=== PATIENT | female | born 1985 | race Caucasian/White ===

== ENCOUNTER → 2016-06-26 | Outpatient (CLI) | payer MEDICARE, OTHER ==
--- NOTE | 2016-06-26 08:39 | US ---
EXAMINATION TYPE: US venous doppler duplex LE LT DATE OF EXAM: 06/26/2016 7:26 AM COMPARISON: Left leg venous ultrasound April 08, 2012. CLINICAL HISTORY: Z86.718 Hx of DVT, M79.662 Left lower leg pain. SIDE PERFORMED: Left TECHNIQUE: The lower extremity deep venous system is examined utilizing real time linear array sonog cristhian with graded compression, doppler sonography and color-flow sonography. VESSELS IMAGED: External Iliac Vein (EIV) Common Femoral Vein Deep Femoral Vein Greater Saphenous Vein * Femoral Vein Popliteal Vein Small Saphenous Vein * Proximal Calf Veins-limited visualization, due to depth (* superficial vessels) Left Leg: There appears to be some chronic changes at the level of EIV, flow here, as vein not compl etely compressible, no new thrombus, flow throughout entire leg. Imaging of the distal left external iliac vein is improved from 2013 but still has persistent incompl ete compressibility but visualized color flow. Remainder left lower extremity is unremarkable. IMPRESSION: Some residual chronic thrombus distal left external iliac vein improved from prior, no ne w or acute DVT in the left lower extremity is present.
== END | disposition home or self-care (01) ==
LOC: LABWHC1 07:00
PROVIDERS: ATTEND Family Medicine
DX: I82.522 Chronic embolism and thrombosis of left iliac vein (principal)

== ENCOUNTER → 2017-03-15 | Outpatient (CLI) | payer MEDICARE, OTHER ==
--- NOTE | 2017-03-15 13:36 | US ---
EXAMINATION TYPE: US venous doppler duplex LE LT DATE OF EXAM: 03/15/2017 1:21 PM COMPARISON: US June 26, 2016 CLINICAL HISTORY: M79.605 LT LEG PAIN; Entire left leg pain. Patient stated is on daily Aspirin for D VT; on Depo Provera shot SIDE PERFORMED: Left TECHNIQUE: The lower extremity deep venous system is examined utilizing real time linear array sonog cristhian with graded compression, doppler sonography and color-flow sonography. VESSELS IMAGED: Common Femoral Vein Deep Femoral Vein Greater Saphenous Vein * Femoral Vein Popliteal Vein Small Saphenous Vein * Proximal Calf Veins (* superficial vessels) Left Leg: Increased non occluding chronic wall changes are noted in CFV; non occluding chronic wall changes still seen in one of two veins seen at left popliteal level as one of these veins compresses to wall changes. IMPRESSION: Cannot exclude acute partial occlusive deep venous thrombus on background of chronic DVT . Results communicated to ordering physician office via telephone shortly after exam was completed.
== END | disposition home or self-care (01) ==
LOC: RADUSWWP 12:10
PROVIDERS: ATTEND Family Medicine
DX: M79.605 Pain in left leg (principal)

== ENCOUNTER 2017-03-16 15:22 | Emergency (ER) | payer MEDICARE, OTHER ==
--- NOTE | 2017-03-16 16:11 | ED ---
General Adult HPI - General Chief complaint: Shortness of Breath Stated complaint: Possible blood clot Time Seen by Provider: 03/16/17 15:46 Source: patient, RN notes reviewed, old records reviewed Mode of arrival: EMS Limitations: no limitations - History of Present Illness Initial comments: Chief complaint and history of present illness; this is a 32-year-old female who was diagnosed with a probably acute on chronic DVT left leg yesterday. She was started on Xarelto. She's taken 3 pills since that time. This morning approximately 30 minutes after awakening she started having some shortness of breath. Mild chest heaviness chest pressure. The patient reports that her doctor wanted her to be admitted yesterday for evaluation and further management but she states she was not prepared to stay and she needed to go home to take care of her. - Related Data Home Medications Medication Instructions Recorded Confirmed Acyclovir [Zovirax] 400 mg PO DAILY 03/16/17 03/16/17 Chlorthalidone 25 mg PO DAILY 03/16/17 03/16/17 Ergocalciferol [Vitamin D2] 50,000 unit PO Q30D 03/16/17 03/16/17 Lisinopril [Prinivil] 10 mg PO DAILY 03/16/17 03/16/17 Rivaroxaban [Xarelto] 15 mg PO BID 03/16/17 03/16/17 Allergies Allergy/AdvReac Type Severity Reaction Status Date / Time No Known Allergies Allergy Verified 03/16/17 16:12 Review of Systems ROS Statement: Those systems with pertinent positive or pertinent negative responses have been documented in the HPI. Review of systems. Patient denies any headache or visual acuity changes. She complains of mild chest pressure mild shortness of breath that started approximately half hour after awakening this morning. Mild sweats. No radiation of discomfort. Patient denies any other symptoms. Past medical problems significant for depression and bipolar disorder and anxiety. Also asthma, chronic DVT and hypertension. Surgeries cholecystectomy. Family history cancers including breast and lung and skin. Patient denies any ALLERGIES nonsmoker nondrinker. ROS Other: All systems not noted in ROS Statement are negative. Past Medical History Past Medical History: Asthma, Deep Vein Thrombosis (DVT), Hypertension History of Any Multi-Drug Resistant Organisms: None Reported Past Surgical History: Cholecystectomy Additional Past Surgical History / Comment(s): pt states she has had more surgeries, however cannot rememeber what surgeries have been done Past Psychological History: Anxiety, Bipolar Smoking Status: Former smoker Past Alcohol Use History: None Reported Past Drug Use History: None Reported General Exam - General Exam Comments Initial Comments: General: The patient is awake and alert, here because she is complaining of feeling short of breath and mild chest pressure. Patient was diagnosis acute on chronic DVT yesterday. She's had 3 doses of Xarelto starting yesterday. Vital signs temp 98.1 pulse 95 respiratory rate 20 pulse ox 94% on room air blood pressure 127/73. Pulse ox on nasal oxygen 2 L, 98%. Eye: Pupils are equal, round and reactive to light, extra-ocular movements are intact ; there is normal conjunctiva bilaterally. No signs of icterus. Ears, nose, mouth and throat: There are moist mucous membranes and no oral lesions. Neck: The neck is supple, there is no tenderness, no anterior cervical lymphadenopathy , thyroid not enlarged, Cardiovascular: There is a regular rate and rhythm. No murmur, rub or gallop is appreciated. Respiratory: Lungs are clear to auscultation, respirations are non-labored, breath sounds are equal. No wheezes, stridor, rales, or rhonchi. Objective complaint of shortness of breath Gastrointestinal: Soft, non-distended, non-tender abdomen without masses or organomegaly noted. There is no rebound or guarding present. No CVA tenderness. Bowel sounds are unremarkable. Back: There is no tenderness to palpation in the midline. There is no obvious deformity. No rashes noted. Musculoskeletal: Normal ROM, no tenderness, There is no pedal edema. There is no calf tenderness or swelling. Sensation intact. Pulses equal bilaterally 2+. Negative Homans sign. Neurological: CN II-XII intact, There are no obvious motor or sensory deficits. Coordination appears grossly intact. Speech is normal. Skin: Skin is warm and dry and no rashes or lesions are noted. Psychiatric: History of anxiety, depression and bipolar disorder. States she does not know if she is anxious and feeling short of breath or short of breath because of the blood clot in her leg. Limitations: no limitations Course Vital Signs 03/16/17 15:28 Temperature 98.1 F Pulse Rate 95 Respiratory 20 Rate Blood Pressure 127/73 O2 Sat by Pulse 94 L Oximetry EKG Findings - EKG Comments: EKG Findings:: EKG was done and reviewed at 1547. EKG showed normal sinus rhythm with sinus arrhythmia. No acute ST elevation. Rate 88 WI interval 164 QRS 78 QT 434 QTc of 525. No old EKG to compare to. Dr. Nowak Medical Decision Making - Medical Decision Making Medical decision making; the patient's here because of shortness of breath after having a diagnosis of acute on chronic DVT. She's been on Xarelto for 3 doses since yesterday. Today's laboratory shows white count 10.9 hemoglobin 14 hematocrit 42. INR 1.2. D-dimer 0.42. Potassium 4.3, BUN 16 creatinine 0.9 and GFR greater than 60. Glucose 94. DT the chest to rule out PE was done and reviewed by radiologist his final impression is no evident pulmonary embolism. Correlate for possible pulmonary artery hypertension. As read by Dr. William Patient states she is feeling better now. We did discuss anxiety and hyperventilation. The patient be advised to call follow-up with family physician. Continue on her Xarelto. Return emergency room as needed. - Lab Data Result diagrams: 03/16/17 15:55 03/16/17 15:55 Lab Results 03/16/17 03/16/17 03/16/17 Range/Units 15:55 15:55 15:55 WBC 10.9 H (3.8-10.6) k/uL RBC 5.26 (3.80-5.40) m/uL Hgb 14.2 (11.4-16.0) gm/dL Hct 42.5 (34.0-46.0) % MCV 80.8 (80.0-100.0) fL MCH 26.9 (25.0-35.0) pg MCHC 33.3 (31.0-37.0) g/dL RDW 14.8 (11.5-15.5) % Plt Count 343 (150-450) k/uL Neutrophils % 63 % Lymphocytes % 25 % Monocytes % 5 % Eosinophils % 5 % Basophils % 1 % Neutrophils # 6.9 (1.3-7.7) k/uL Lymphocytes # 2.7 (1.0-4.8) k/uL Monocytes # 0.5 (0-1.0) k/uL Eosinophils # 0.5 (0-0.7) k/uL Basophils # 0.1 (0-0.2) k/uL PT (9.0-12.0) sec INR (<1.2) APTT (22.0-30.0) sec D-Dimer (<0.60) mg/L FEU Sodium 140 (137-145) mmol/L Potassium 3.3 L (3.5-5.1) mmol/L Chloride 102 (98-107) mmol/L Carbon Dioxide 23 (22-30) mmol/L Anion Gap 15 mmol/L BUN 16 (7-17) mg/dL Creatinine 0.90 (0.52-1.04) mg/dL Est GFR (MDRD) Af Amer >60 (>60 ml/min/1.73 sqM) Est GFR (MDRD) Non-Af >60 (>60 ml/min/1.73 sqM) Glucose 94 (74-99) mg/dL Calcium 9.3 (8.4-10.2) mg/dL Total Bilirubin 1.1 (0.2-1.3) mg/dL AST 22 (14-36) U/L ALT 39 (9-52) U/L Alkaline Phosphatase 60 (38-126) U/L Total Creatine Kinase 113 (30-135) U/L CK-MB (CK-2) 0.4 (0.0-2.4) ng/mL CK-MB (CK-2) Rel Index 0.4 Troponin I <0.012 (0.000-0.034) ng/mL Total Protein 7.1 (6.3-8.2) g/dL Albumin 4.3 (3.5-5.0) g/dL 03/16/17 Range/Units 15:55 WBC (3.8-10.6) k/uL RBC (3.80-5.40) m/uL Hgb (11.4-16.0) gm/dL Hct (34.0-46.0) % MCV (80.0-100.0) fL MCH (25.0-35.0) pg MCHC (31.0-37.0) g/dL RDW (11.5-15.5) % Plt Count (150-450) k/uL Neutrophils % % Lymphocytes % % Monocytes % % Eosinophils % % Basophils % % Neutrophils # (1.3-7.7) k/uL Lymphocytes # (1.0-4.8) k/uL Monocytes # (0-1.0) k/uL Eosinophils # (0-0.7) k/uL Basophils # (0-0.2) k/uL PT 11.3 (9.0-12.0) sec INR 1.2 H (<1.2) APTT 24.3 (22.0-30.0) sec D-Dimer 0.42 (<0.60) mg/L FEU Sodium (137-145) mmol/L Potassium (3.5-5.1) mmol/L Chloride (98-107) mmol/L Carbon Dioxide (22-30) mmol/L Anion Gap mmol/L BUN (7-17) mg/dL Creatinine (0.52-1.04) mg/dL Est GFR (MDRD) Af Amer (>60 ml/min/1.73 sqM) Est GFR (MDRD) Non-Af (>60 ml/min/1.73 sqM) Glucose (74-99) mg/dL Calcium (8.4-10.2) mg/dL Total Bilirubin (0.2-1.3) mg/dL AST (14-36) U/L ALT (9-52) U/L Alkaline Phosphatase (38-126) U/L Total Creatine Kinase (30-135) U/L CK-MB (CK-2) (0.0-2.4) ng/mL CK-MB (CK-2) Rel Index Troponin I (0.000-0.034) ng/mL Total Protein (6.3-8.2) g/dL Albumin (3.5-5.0) g/dL Disposition Clinical Impression: Hyperventilation syndrome Disposition: HOME SELF-CARE Condition: Fair Instructions: Hyperventilation (ED) Referrals: Glenn Yung MD [Primary Care Provider] - 1-2 days Time of Disposition: 17:57
[2017-03-16 16:25] LABS: Basophils # (A) 0.1 k/uL (0-0.2); Basophils % (A) 1 %; Eosinophils # (A) 0.5 k/uL (0-0.7); Eosinophils % (A) 5 %; HCT 42.5 % (34.0-46.0); HGB 14.2 gm/dL (11.4-16.0); Lymphocytes # (A) 2.7 k/uL (1.0-4.8); Lymphocytes % (A) 25 %; MCH 26.9 pg (25.0-35.0); MCHC 33.3 g/dL (31.0-37.0); MCV 80.8 fL (80.0-100.0); Mean Platelet Volume 6.9; Monocytes # (A) 0.5 k/uL (0-1.0); Monocytes % (A) 5 %; Neutrophils # (A) 6.9 k/uL (1.3-7.7); Neutrophils % (A) 63 %; Platelet Count 343 k/uL (150-450); RBC 5.26 m/uL (3.80-5.40); RDW 14.8 % (11.5-15.5); WBC 10.9 k/uL (3.8-10.6)
[2017-03-16 16:31] LABS: ALT 39 U/L (9-52); AST 22 U/L (14-36); Albumin 4.3 g/dL (3.5-5.0); Alkaline Phosphatase 60 U/L (38-126); Anion Gap 15 mmol/L; Blood Urea Nitrogen 16 mg/dL (7-17); Calcium 9.3 mg/dL (8.4-10.2); Carbon Dioxide 23 mmol/L (22-30); Chloride 102 mmol/L (98-107); Glucose 94 mg/dL (74-99); Potassium 3.3 mmol/L (3.5-5.1); Sodium 140 mmol/L (137-145); Total Bilirubin 1.1 mg/dL (0.2-1.3); Total Protein 7.1 g/dL (6.3-8.2)
[2017-03-16 16:34] LABS: D-Dimer 0.42 mg/L FEU (<0.60)
[2017-03-16 16:38] LABS: INR 1.2 (<1.2); Partial Thromboplastin Time 24.3 sec (22.0-30.0); Prothrombin Time 11.3 sec (9.0-12.0)
[2017-03-16 16:46] LABS: Creatine Kinase 113 U/L (30-135)
--- NOTE | 2017-03-16 16:53 | XR ---
EXAMINATION TYPE: XR chest 2V DATE OF EXAM: 03/16/2017 COMPARISON: Prior chest x-ray 07/31/2009 HISTORY: Difficulty breathing TECHNIQUE: Frontal and lateral views of the chest are obtained. FINDINGS: There is no focal air space opacity, pleural effusion, or pneumothorax seen. The cardiac silhouette size is within normal limits. There are overlying cardiac leads. Surgical clips in the up per abdomen. The osseous structures are intact. IMPRESSION: No acute cardiopulmonary process.
[2017-03-16] MEDS ORDERED: RX INFO: IV CONTRAST WAS GIVEN 1 EACH MISC MISCELLANE PRN (16:58)
[2017-03-16 16:59] LABS: Creatine Kinase MB 0.4 ng/mL (0.0-2.4); Troponin I <0.012 ng/mL (0.000-0.034)
--- NOTE | 2017-03-16 17:52 | CT ---
EXAMINATION TYPE: CT angio chest DATE OF EXAM: 03/16/2017 COMPARISON: Chest x-ray 03/16/2017 HISTORY: Known Lower extremity DVT. Chest pain and Shortness of breath today CT DLP: 591 mGycm Automated exposure control for dose reduction was used. CONTRAST: CTA scan of the thorax is performed with IV Contrast, patient injected with 100 mL of Omnipaque 300, pulmonary embolism protocol. MIP images are created and reviewed. 3D reconstructed images are creat ed on an independent workstation and reviewed. FINDINGS: LUNGS: The lungs are grossly clear, there is no concerning parenchymal mass or nodule identified. T here is no pleural effusion or pneumothorax seen. The tracheobronchial tree is patent. AORTA: No additional significant abnormality is seen. There is a four-vessel arch. MEDIASTINUM: There is satisfactory enhancement of the pulmonary artery and its branches, there is no CT evidence for pulmonary embolism. There are no greater than 1 cm hilar or mediastinal lymph nodes. No pericardial effusion is seen. Pulmonary artery appears prominently. OTHER: Patient is status post cholecystectomy. IMPRESSION: NO EVIDENT PULMONARY EMBOLISM. CORRELATE FOR POSSIBLE PULMONARY ARTERY HYPERTENSION.
[2017-03-16 17:58] VITALS: BP 134/67; PULSE 91; RESP 18
[2017-03-16 18:00] VITALS: TEMP 99.7
== END 2017-03-16 18:11 | disposition home or self-care (01) ==
LOC: EC 15:22
DX: F45.8 Other somatoform disorders (principal); I10 Essential (primary) hypertension; F31.9 Bipolar disorder, unspecified; F41.9 Anxiety disorder, unspecified; Z86.718 Personal history of other venous thrombosis and embolism; Z87.891 Personal history of nicotine dependence; Z79.01 Long term (current) use of anticoagulants; Z79.899 Other long term (current) drug therapy
CPT/HCPCS: 36415; 93005; 85379; 80053; 82550; 82553; 84484; 85025; 85610; 85730; 71046; 71275; 99285; Q9967

== ENCOUNTER → 2018-12-31 | Outpatient (CLI) | payer MEDICARE, OTHER ==
--- NOTE | 2018-12-31 11:20 | ECHOF ---
Referral Reason:R07.9 chest pain, I10 hypertension MEASUREMENTS -------- HEIGHT: 162.6 cm WEIGHT: 104.3 kg BP: RVIDd: 2.1 cm (< 3.3) IVSd: 1.1 cm (0.6 - 1.1) LVIDd: 4.6 cm (3.9 - 5.3) LVPWd: 1.3 cm (0.6 - 1.1) IVSs: 1.4 cm LVIDs: 2.8 cm LVPWs: 1.8 cm LAESV Index (A-L): 13.16 ml/m Ao Diam: 2.9 cm (2.0 - 3.7) AV Cusp: 1.5 cm (1.5 - 2.6) LA Diam: 2.2 cm (2.7 - 3.8) MV EXCURSION: 21.562 mm (> 18.000) MV EF SLOPE: 122 mm/s (70 - 150) EPSS: 0.9 cm MV E Yehuda: 0.84 m/s MV DecT: 261 ms MV A Yehuda: 0.50 m/s MV E/A Ratio: 1.68 RAP: 5.00 mmHg RVSP: 14.10 mmHg TAPSE: 25.70 mm FINDINGS -------- Sinus rhythm. This was a technically adequate study. The left ventricular size is normal. There is mild concentric left ventricular hypertrophy. Overa ll left ventricular systolic function is normal with, an EF between 55 - 60 %. The diastolic fillin g pattern is normal for the age of the patient 11.31. The right ventricle is normal in size. The right ventricular systolic function is normal. The left atrial size is normal. Normal LA size by volume 22+/-6 ml/m2. The right atrial size is normal. Interatrial and interventricular septum intact. The aortic valve is trileaflet and appears structurally normal. The mitral valve is normal. The mitral valve leaflets are mildly thickened. There is trace mitral regurgitation. The tricuspid valve appears structurally normal. Trace tricuspid regurgitation present. Right deni tricular systolic pressure is normal at < 35 mmHg. There is no pulmonic regurgitation present. The aortic root size is normal. Normal inferior vena cava with normal inspiratory collapse consistent with estimated right atrial pre ssure of 5 mmHg. There is no pericardial effusion. CONCLUSIONS -------- 1. Sinus rhythm. 2. This was a technically adequate study. 3. The left ventricular size is normal. 4. There is mild concentric left ventricular hypertrophy. 5. Overall left ventricular systolic function is normal with, an EF between 55 - 60 %. 6. The diastolic filling pattern is normal for the age of the patient 11.31 7. The right ventricle is normal in size. 8. The right ventricular systolic function is normal. 9. The left atrial size is normal. 10. Normal LA size by volume 22+/-6 ml/m2. 11. The right atrial size is normal. 12. Interatrial and interventricular septum intact. 13. The aortic valve is trileaflet and appears structurally normal. 14. The mitral valve is normal. 15. The mitral valve leaflets are mildly thickened. 16. There is trace mitral regurgitation. 17. The tricuspid valve appears structurally normal. 18. Trace tricuspid regurgitation present. 19. Right ventricular systolic pressure is normal at < 35 mmHg. 20. There is no pulmonic regurgitation present. 21. The aortic root size is normal. 22. Normal inferior vena cava with normal inspiratory collapse consistent with estimated right atrial pressure of 5 mmHg. 23. There is no pericardial effusion. TRANSPORT AIRCREWMAN: Edilia Dobson, JOEL
== END | disposition home or self-care (01) ==
LOC: RADECHMAIN 08:13
PROVIDERS: ATTEND Family Medicine
DX: I51.7 Cardiomegaly (principal); I10 Essential (primary) hypertension; Z86.718 Personal history of other venous thrombosis and embolism
CPT/HCPCS: 93306

== ENCOUNTER 2019-11-06 16:49 | Emergency (ER) | payer MEDICARE, OTHER ==
[2019-11-06 16:54] VITALS: RESP 18
[2019-11-06] MEDS ORDERED: dexAMETHasone 4 MG TAB PO STA (17:52)
--- NOTE | 2019-11-06 18:04 | ED ---
ENT HPI - General Chief complaint: ENT Stated complaint: sorethroat Time Seen by Provider: 11/06/19 16:57 Source: patient Mode of arrival: ambulatory Limitations: no limitations - History of Present Illness Initial comments: Patient is a 34-year-old previously healthy female who presents emergency room with reported sore throat. Reports that his been going on for the past 3 days. Reports painful swallowing. Denies any fevers or chills. No drooling, trismus or hoarseness. Denies a cough or shortness of breath. No concerning the . Denies any oral swelling. No ear pain. No sick contacts with similar symptoms. No other alleviating, precipitating or modifying factors - Related Data Home Medications Medication Instructions Recorded Confirmed Acyclovir [Zovirax] 400 mg PO DAILY 03/16/17 03/16/17 Chlorthalidone 25 mg PO DAILY 03/16/17 03/16/17 Ergocalciferol [Vitamin D2] 50,000 unit PO Q30D 03/16/17 03/16/17 Lisinopril [Prinivil] 10 mg PO DAILY 03/16/17 03/16/17 Rivaroxaban [Xarelto] 15 mg PO BID 03/16/17 03/16/17 Allergies Allergy/AdvReac Type Severity Reaction Status Date / Time Penicillins Allergy Rash/Hives Verified 11/06/19 16:54 Review of Systems ROS Statement: Those systems with pertinent positive or pertinent negative responses have been documented in the HPI. ROS Other: All systems not noted in ROS Statement are negative. Past Medical History Past Medical History: Asthma, Deep Vein Thrombosis (DVT), Hypertension History of Any Multi-Drug Resistant Organisms: None Reported Past Surgical History: Cholecystectomy Additional Past Surgical History / Comment(s): pt states she has had more surgeries, however cannot rememeber what surgeries have been done Past Psychological History: Anxiety, Bipolar Smoking Status: Never smoker Past Alcohol Use History: None Reported, Occasional Past Drug Use History: None Reported General Exam Limitations: no limitations General appearance: alert, in no apparent distress Head exam: Present: atraumatic, normocephalic, normal inspection Eye exam: Present: normal appearance, PERRL, EOMI. Absent: scleral icterus, conjunctival injection, periorbital swelling ENT exam: Present: normal exam, mucous membranes moist Neck exam: Present: normal inspection. Absent: tenderness, meningismus, lymphadenopathy Respiratory exam: Present: normal lung sounds bilaterally. Absent: respiratory distress, wheezes, rales, rhonchi, stridor Cardiovascular Exam: Present: regular rate, normal rhythm, normal heart sounds. Absent: systolic murmur, diastolic murmur, rubs, gallop, clicks GI/Abdominal exam: Present: soft, normal bowel sounds. Absent: distended, tenderness, guarding, rebound, rigid Extremities exam: Present: normal inspection, full ROM, normal capillary refill. Absent: tenderness, pedal edema, joint swelling, calf tenderness Back exam: Present: normal inspection Neurological exam: Present: alert, oriented X3, CN II-XII intact Psychiatric exam: Present: normal affect, normal mood Skin exam: Present: warm, dry, intact, normal color. Absent: rash Course Vital Signs 11/06/19 11/06/19 16:50 18:19 Temperature 98.3 F 99.2 F Pulse Rate 92 72 Respiratory 18 18 Rate Blood Pressure 147/102 146/103 O2 Sat by Pulse 96 96 Oximetry Medical Decision Making - Medical Decision Making Upon arrival patient was placed into room 17. A thorough history and physical exam was performed. Patient's throat is swabbed for strep. Patient also agrees to a covid swab. Rapid strep is negative. Will be sent for culture. Patient is given a dose of Decadron. Informed her that we will call her with positive culture results. She is to follow up with her primary care physician within 2-4 days. Return to the emergency room for any new or worsening symptoms patient was discharged home in stable condition - Lab Data Lab Results 11/06/19 11/06/19 Range/Units 17:22 17:22 Coronavirus (PCR) Not Detected (Not Detected) Group A Strep Rapid Negative (Negative) Disposition Clinical Impression: Acute pharyngitis Disposition: HOME SELF-CARE Condition: Stable Instructions (If sedation given, give patient instructions): Pharyngitis (ED) Additional Instructions: Please follow up with your PCP. Return to the ED for any new or worsening symptoms. Is patient prescribed a controlled substance at d/c from ED?: No Referrals: Glenn Yung MD [Primary Care Provider] - 1-2 days Time of Disposition: 18:03
[2019-11-06 18:20] VITALS: BP 146/103; PULSE 72; TEMP 99.2
== END 2019-11-06 18:20 | disposition home or self-care (01) ==
LOC: EC 16:49
DX: J02.9 Acute pharyngitis, unspecified (principal); I10 Essential (primary) hypertension; Z20.828 Contact with and (suspected) exposure to other viral communicable diseases; Z88.0 Allergy status to penicillin; Z86.718 Personal history of other venous thrombosis and embolism; Z79.01 Long term (current) use of anticoagulants; Z79.899 Other long term (current) drug therapy; Z90.49 Acquired absence of other specified parts of digestive tract
CPT/HCPCS: 99283; 87081; 87430; U0003; J8540